=== PATIENT | female | born 1960 | race Caucasian/White ===

== ENCOUNTER 2023-03-14 23:28 | Emergency (ER) | payer MEDICARE, OTHER ==
[~2023-03-14] VITALS: Ht 157.5 cm; Wt 59.0 kg
--- NOTE | 2023-03-14 23:29 | NUR ---
PT BROUGHT TO BED 10 VIA [facility]
[2023-03-14 23:37] VITALS: BP 154/75
--- NOTE | 2023-03-14 23:54 | NUR ---
Dr. Cunningham by bedside evaluating patient at this time.
[2023-03-15] MEDS ORDERED: MORPHINE SULFATE 4 MG/ML SYR IM ONE (00:10)
[2023-03-15] MEDS ORDERED: KETOROLAC 30 MG/ML VIAL IM ONE (01:35)
[2023-03-15 01:46] VITALS: BP 152/61
--- NOTE | 2023-03-15 02:02 | NUR ---
Patient discharged with v/s stable. Written and verbal after care instructions given and explained. Patient verbalized understanding. Ambulatory with steady gait. All questions addressed prior to discharge. Advised to follow up with PMD. Patient picked up by violetta to be taken to [facility]. Spoke with Vanessa from [facility], who stated they would have someone meet patient in front of facility.
== END 2023-03-15 02:02 | disposition home or self-care (01) ==
LOC: MED 23:28
DX: S16.1XXA Strain of muscle, fascia and tendon at neck level, initial encounter (principal); S09.90XA Unspecified injury of head, initial encounter; M79.601 Pain in right arm; M79.602 Pain in left arm; I50.9 Heart failure, unspecified; E87.5 Hyperkalemia; Z88.8 Allergy status to other drugs, medicaments and biological substances; Z79.899 Other long term (current) drug therapy; F41.9 Anxiety disorder, unspecified; W18.30XA Fall on same level, unspecified, initial encounter; Y93.89 Activity, other specified; Y92.89 Other specified places as the place of occurrence of the external cause; Y99.8 Other external cause status
CPT/HCPCS: 70450; 72125; 96372; 99285; J1885; J2270

== ENCOUNTER 2023-03-19 18:59 | Emergency (ER) | payer MEDICARE ==
[~2023-03-19] VITALS: Ht 157.5 cm; Wt 61.2 kg
[2023-03-19 19:03] VITALS: BP 133/73
--- NOTE | 2023-03-19 19:03 | NUR ---
PT TO LOBBY
--- NOTE | 2023-03-19 20:00 | NUR ---
MD Milan assessing pt at this time.
--- NOTE | 2023-03-19 20:05 | NUR ---
PT BIBA FROM SNF FOR C/O BILATERAL HAND PAIN; DESCRIBED CRAMPING IN NATURE. DENIES ANY INJURY/TRAUMA. PMH: CHF, ANXIETY, DEPRESSION
[2023-03-19 21:01] LABS: BASOPHILS # (AUTO) 0.1 K/uL (0.00-0.22); BASOPHILS % (AUTO) 0.8 % (0.0-2.0); EOSINOPHILS # (AUTO) 0.1 K/uL (0-0.4); EOSINOPHILS % (AUTO) 1.5 % (0.0-4.0); HEMOGLOBIN 13.7 g/dL (12.0-16.0); LYMPHOCYTES # (AUTO) 2.5 K/uL (2.5-16.5); LYMPHOCYTES % (AUTO) 32.8 % (20.5-51.1); MEAN CORPUSCULAR HEMOGLOBIN 30 pg (27-31); MEAN CORPUSCULAR HGB CONC 34 g/dL (33-37); MEAN CORPUSCULAR VOLUME 89.6 fL (80-94); MONOCYTES # (AUTO) 0.5 K/uL (0.8-1.0); MONOCYTES % (AUTO) 7.2 % (1.7-9.3); NEUTROPHILS # (AUTO) 4.3 K/uL (1.8-7.7); NEUTROPHILS % (AUTO) 57.7 % (42.2-75.2); PLATELET COUNT (AUTO) 353 K/uL (140-450); RED BLOOD CELL COUNT(AUTO) 4.58 MIL/uL (4.20-5.40); RED CELL DISTRIBUTION WIDTH 14.4 % (11.6-13.7); WHITE BLOOD COUNT (AUTO) 7.5 K/uL (4.8-10.8)
[2023-03-19 21:09] LABS: ANION GAP 12.4 (8-16); CARBON DIOXIDE 27.1 mmol/L (21-32); CREATININE 0.7 mg/dL (0.6-1.3); POTASSIUM 3.5 mmol/L (3.5-5.1)
[2023-03-19] MEDS ORDERED: MORPHINE SULFATE 4 MG/ML SYR IM ONE (21:15)
--- NOTE | 2023-03-19 21:47 | NUR ---
Pt medicated as ordered via IM; Tolerated well.
[2023-03-19 21:59] VITALS: BP 130/72
--- NOTE | 2023-03-19 22:00 | NUR ---
Patient discharged with v/s stable. Written and verbal after care instructions given and explained. Patient verbalized understanding. Ambulatory with steady gait. All questions addressed prior to discharge. Advised to follow up with PMD.
== END 2023-03-19 22:00 | disposition home or self-care (01) ==
LOC: MED 18:59
DX: M79.641 Pain in right hand (principal); M79.642 Pain in left hand; Z88.8 Allergy status to other drugs, medicaments and biological substances; Z79.899 Other long term (current) drug therapy
CPT/HCPCS: 36415; 80048; 85025; 96372; 99283; J2270

== ENCOUNTER 2023-03-20 05:01 | Emergency (ER) | payer MEDICARE ==
[~2023-03-20] VITALS: Ht 165.1 cm; Wt 63.5 kg
--- NOTE | 2023-03-20 05:07 | NUR ---
pt to bed 8 ALS
[2023-03-20 05:09] VITALS: BP 133/77
--- NOTE | 2023-03-20 05:33 | NUR ---
Upon arrival evaluated pt at . Pt informed the doctor that this is only the second time that she experienced pain in her arms with numbness. CXR was completed. EKG in progress.
[2023-03-20 05:37] LABS: BASOPHILS # (AUTO) 0.1 K/uL (0.00-0.22); BASOPHILS % (AUTO) 0.6 % (0.0-2.0); EOSINOPHILS # (AUTO) 0.3 K/uL (0-0.4); HEMATOCRIT 38.4 % (36-48); LYMPHOCYTES # (AUTO) 2.9 K/uL (2.5-16.5); LYMPHOCYTES % (AUTO) 34.3 % (20.5-51.1); MEAN CORPUSCULAR HEMOGLOBIN 30 pg (27-31); MEAN CORPUSCULAR HGB CONC 34 g/dL (33-37); MEAN CORPUSCULAR VOLUME 89.1 fL (80-94); MONOCYTES # (AUTO) 0.6 K/uL (0.8-1.0); MONOCYTES % (AUTO) 6.5 % (1.7-9.3); NEUTROPHILS # (AUTO) 4.7 K/uL (1.8-7.7); NEUTROPHILS % (AUTO) 55.6 % (42.2-75.2); PLATELET COUNT (AUTO) 308 K/uL (140-450); RED BLOOD CELL COUNT(AUTO) 4.31 MIL/uL (4.20-5.40); RED CELL DISTRIBUTION WIDTH 14.5 % (11.6-13.7); WHITE BLOOD COUNT (AUTO) 8.5 K/uL (4.8-10.8)
[2023-03-20 05:56] LABS: ALBUMIN 3.5 g/dL (3.4-5.0); ANION GAP 11.7 (8-16); ASPARTATE AMINOTRANSFERASE 17 U/L (15-37); CARBON DIOXIDE 25.2 mmol/L (21-32); CHLORIDE 108 mmol/L (98-107); CREATININE 0.6 mg/dL (0.6-1.3); GFR ARICAN-AMERICAN 130 mL/min (>90); GLUCOSE 98 mg/dL (74-106); SODIUM SERUM 142 mmol/L (136-145); TOTAL BILIRUBIN 0.3 mg/dL (0.0-1.0); UREA NITROGEN, BLOOD 5 mg/dL (7-18)
[2023-03-20 06:06] LABS: POTASSIUM 2.9 mmol/L (3.5-5.1)
[2023-03-20] MEDS ORDERED: POTASSIUM CHLORIDE 10 MEQ TABER PO ONE (06:15)
--- NOTE | 2023-03-20 06:51 | NUR ---
Pt resting in bed without distress. Brielle RODRIGUEZ re-evaluating pt at . informed pt that her EKG and cardiac tests were WNL. stated, she was going to order an additional medication and arrange transport to return pt back home.
[2023-03-20] MEDS ORDERED: MORPHINE SULFATE 4 MG/ML SYR IM ONE (07:00)
[2023-03-20] MEDS ORDERED: ONDANSETRON 4 MG ODT PO ONE (07:00)
--- NOTE | 2023-03-20 07:17 | NUR ---
Pt medicated as ordered.
--- NOTE | 2023-03-20 07:23 | NUR ---
Pt endorsed to MATE CHIEF Kavita. Pt was medicated and will be re-evaluated by primary MATE CHIEF. Transportation being arranged.
--- NOTE | 2023-03-20 07:24 | NUR ---
Report recieved from [facility] for transfer of care.
--- NOTE | 2023-03-20 08:39 | NUR ---
Patient was wheelchair assisted to the restroom.
--- NOTE | 2023-03-20 09:06 | NUR ---
Patient was offered a juice.
[2023-03-20 09:39] VITALS: BP 119/75
[2023-03-20] MEDS ORDERED: ALPRAZolam 0.25 MG TAB PO ONE (10:25)
--- NOTE | 2023-03-20 10:30 | NUR ---
Patient requesting Xanax, states she takes medication at home. Dr. Coppola made aware of patients request.
--- NOTE | 2023-03-20 12:48 | NUR ---
Patient discharged with v/s stable. Written and verbal after care instructions given and explained. Patient alert, oriented and verbalized understanding of instructions. Carried with to home. All questions addressed prior to discharge. ID band removed. Patient advised to follow up with PMD. Rx of given. Patient educated on indication of medication including possible reaction and side effects. Opportunity to ask questions provided and answered.
--- NOTE | 2023-03-20 12:48 | NUR ---
The patient's care was reviewed and supervised by ED Agency Nurse 9, RN, RN.
== END 2023-03-20 12:48 | disposition home or self-care (01) ==
LOC: MED 05:01
DX: M79.641 Pain in right hand (principal); M79.642 Pain in left hand; E87.6 Hypokalemia; F41.9 Anxiety disorder, unspecified; I50.9 Heart failure, unspecified; F32.A Depression, unspecified; Z88.8 Allergy status to other drugs, medicaments and biological substances; Z79.899 Other long term (current) drug therapy; Z98.890 Other specified postprocedural states
CPT/HCPCS: 36415; 71045; 80053; 84484; 85025; 93005; 96372; 99285; J2270; Q0092; Q0162

== ENCOUNTER 2023-05-10 08:28 | Emergency (ER) | payer MEDICARE ==
[~2023-05-10] VITALS: Ht 160 cm; Wt 68.0 kg
[2023-05-10 08:35] VITALS: BP 122/70; PULSE 99; RESP 18; TEMP 97.4; O2SAT 99
--- NOTE | 2023-05-10 08:54 | NUR ---
PATIENT BIBA- TO THE LOBBY [facility]
[2023-05-10 09:35] LABS: BASOPHILS # (AUTO) 0.1 K/uL (0.00-0.22); BASOPHILS % (AUTO) 0.9 % (0.0-2.0); EOSINOPHILS # (AUTO) 0.2 K/uL (0-0.4); EOSINOPHILS % (AUTO) 3.2 % (0.0-4.0); HEMATOCRIT 42.3 % (36-48); HEMOGLOBIN 14.1 g/dL (12.0-16.0); LYMPHOCYTES # (AUTO) 2.1 K/uL (2.5-16.5); LYMPHOCYTES % (AUTO) 37.2 % (20.5-51.1); MEAN CORPUSCULAR HEMOGLOBIN 30 pg (27-31); MEAN CORPUSCULAR HGB CONC 33 g/dL (33-37); MEAN CORPUSCULAR VOLUME 90.4 fL (80-94); MONOCYTES # (AUTO) 0.4 K/uL (0.8-1.0); NEUTROPHILS # (AUTO) 2.8 K/uL (1.8-7.7); NEUTROPHILS % (AUTO) 50.7 % (42.2-75.2); PLATELET COUNT (AUTO) 299 K/uL (140-450); RED BLOOD CELL COUNT(AUTO) 4.68 MIL/uL (4.20-5.40); RED CELL DISTRIBUTION WIDTH 14.6 % (11.6-13.7); WHITE BLOOD COUNT (AUTO) 5.6 K/uL (4.8-10.8)
[2023-05-10 09:47] VITALS: TEMP 97.4
[2023-05-10 09:47] LABS: ALBUMIN 4.1 g/dL (3.4-5.0); ANION GAP 10.7 (8-16); CARBON DIOXIDE 29.7 mmol/L (21-32); CREATININE 0.7 mg/dL (0.6-1.3); POTASSIUM 4.4 mmol/L (3.5-5.1); TOTAL BILIRUBIN 0.4 mg/dL (0.0-1.0)
--- NOTE | 2023-05-10 09:48 | NUR ---
62 Y/O F PATIENT BETZY PRESENTS TO ED WITH SIGNS OF ANXIETY, LEG AND ARM PAIN. PT STATES SOB BUT SATTING AT 99% RA. DENIES N/V/D; SKIN IS PINK/WARM/DRY; AAOX4, PT AMBULATES WITH ASSIST; LUNGS CLEAR BL; HR EVEN AND REGULAR; PT DENIES ANY FEVER, CP, SOB, OR COUGH AT THIS TIME; PATIENT STATES PAIN OF 9/10 AT THIS TIME; VSS; PATIENT POSITIONED FOR COMFORT; HOB ELEVATED; BEDRAILS UP X2; BED DOWN. CALL LIGHT WITH IN REACH ER MD MADE AWARE OF PT STATUS. PMHX OSTEOPORISIS ARTHRITIS ALLERGIES GABAPENTIN PREGABLIN
[2023-05-10] MEDS ORDERED: MORPHINE SULFATE 4 MG/ML SYR IM ONE (09:50)
[2023-05-10] MEDS ORDERED: ONDANSETRON 4 MG ODT PO ONE (09:50)
[2023-05-10 09:53] VITALS: O2SAT 99
--- NOTE | 2023-05-10 09:53 | NUR ---
XRAY AT BEDSIDE
--- NOTE | 2023-05-10 10:15 | NUR ---
PT HAS BEEN MEDICATED PER PROVIDERS ORDERS.
[2023-05-10] MEDS ORDERED: LORazepam 0.5 MG TAB ONE (11:29)
[2023-05-10] MEDS ORDERED: LORazepam 0.5 MG TAB PO ONE (11:30)
[2023-05-10 11:49] VITALS: BP 115/76; PULSE 69; RESP 17; O2SAT 98
--- NOTE | 2023-05-10 11:50 | NUR ---
Patient discharged with v/s stable. Written and verbal after care instructions given and explained. Patient alert, oriented and verbalized understanding of instructions. Ambulatory with steady gait. All questions addressed prior to discharge. ID band removed. Patient advised to follow up with PMD. Patient educated on indication of medication including possible reaction and side effects. Opportunity to ask questions provided and answered.
== END 2023-05-10 11:50 | disposition home or self-care (01) ==
LOC: MED 08:28
DX: M79.641 Pain in right hand (principal); M79.642 Pain in left hand; M79.671 Pain in right foot; M79.672 Pain in left foot; R06.02 Shortness of breath; I50.9 Heart failure, unspecified; Z88.8 Allergy status to other drugs, medicaments and biological substances; Z79.899 Other long term (current) drug therapy
CPT/HCPCS: 36415; 71045; 80053; 83880; 84484; 85025; 93005; 96372; 99285; J2270; Q0162

== ENCOUNTER 2023-08-22 07:18 | Emergency (ER) | payer MEDICARE, OTHER ==
[~2023-08-22] VITALS: Ht 152.4 cm; Wt 63.5 kg
[2023-08-22 07:21] VITALS: BP 174/90; PULSE 61; RESP 20; TEMP 98.1; O2SAT 95
[2023-08-22] MEDS ORDERED: KETAMINE 500 MG/5 ML VIAL IM ONE (07:35)
[2023-08-22] MEDS ORDERED: MORPHINE SULFATE 10 MG/ML VIAL IM ONE (07:35)
[2023-08-22] MEDS ORDERED: KETAMINE HCL 50 mg/5 mL UD SYRINGE IV ONE (07:42)
[2023-08-22 08:00] VITALS: BP 146/76; PULSE 76; RESP 20; TEMP 98.1; O2SAT 98
== END 2023-08-22 08:05 | disposition home or self-care (01) ==
LOC: MED 07:18
DX: M79.2 Neuralgia and neuritis, unspecified (principal); I50.9 Heart failure, unspecified; Z88.8 Allergy status to other drugs, medicaments and biological substances
CPT/HCPCS: 96372; 99284; J2270